=== PATIENT | female | born 1975 | race Caucasian/White ===

== ENCOUNTER 2017-12-31 15:33 | Emergency (ER) | payer OTHER ==
[~2017-12-31] VITALS: Ht 162.6 cm; Wt 68.9 kg
[~2017-12-31 15:33] MED LIST: SULF-59 PO; VIC PO
[2017-12-31 15:45] VITALS: BP 146/97
--- NOTE | 2017-12-31 15:50 | NUR ---
PT AMBULATED TO BED12
--- NOTE | 2017-12-31 15:55 | NUR ---
patient reports of 3/10 pain to posterior head where tonie are placed.
--- NOTE | 2017-12-31 15:55 | NUR ---
42f bib self with for evaluation of tonie for laceration repair to posterior head placed here two days ago. Pt report of subjective fevers and lightheadness. No discharge, redness, or swelling noted to tonie. Oxly intact. Pt is aox4 with steady gait. RR are even and unlabored. No acute distress. Awaiting er md lerner. All needs met at this time. Will continue to monitor.
--- NOTE | 2017-12-31 17:22 | NUR ---
patient left without discharge instructions.
== END 2017-12-31 17:22 | disposition home or self-care (01) ==
LOC: MED 15:33
DX: S01.01XD Laceration without foreign body of scalp, subsequent encounter (principal); J45.909 Unspecified asthma, uncomplicated; I10 Essential (primary) hypertension; Z79.899 Other long term (current) drug therapy; W19.XXXD Unspecified fall, subsequent encounter
CPT/HCPCS: 99281

== ENCOUNTER 2018-01-07 13:38 | Emergency (ER) | payer OTHER ==
[~2018-01-07] VITALS: Ht 162.6 cm; Wt 70.8 kg
[2018-01-07 13:51] VITALS: BP 130/87
[2018-01-07 14:17] VITALS: BP 130/87
== END 2018-01-07 14:20 | disposition home or self-care (01) ==
LOC: MED 13:38
DX: S01.01XD Laceration without foreign body of scalp, subsequent encounter (principal); I10 Essential (primary) hypertension; J45.909 Unspecified asthma, uncomplicated; Z48.02 Encounter for removal of sutures; X58.XXXD Exposure to other specified factors, subsequent encounter
CPT/HCPCS: 99281